=== PATIENT | female | born 1955 | race Caucasian/White ===

== ENCOUNTER → 2018-02-11 18:34 | Outpatient (CLI) | payer MEDICAID | END | disposition home or self-care (01) | LOC: D.MAMMO 11:00 | DX: Z12.31 Encounter for screening mammogram for malignant neoplasm of breast (principal) ==

== ENCOUNTER → 2018-03-18 11:54 | Outpatient (CLI) | payer MEDICARE ==
[~2018-03-18 11:54] MED LIST: ADVIL200 MG PO; CALCIUM 600 +1 EAC3 PO; CENTRUM SILVER1 EAC3 PO; ELIQUIS2.5 MG PO; ICAPS AREDS PO; KEFLEX500 MG PO; OXYCODONE HCL5 M1 PO; VISTARIL50 MG PO
[2018-04-07 12:05] VITALS: BMI 32.5
== END | disposition home or self-care (01) ==
LOC: D.LABREF 11:54
DX: M17.11 Unilateral primary osteoarthritis, right knee (principal); Z11.8 Encounter for screening for other infectious and parasitic diseases

== ENCOUNTER 2018-03-31 10:00 | Inpatient (IN) | payer MEDICARE, OTHER ==
[~2018-03-31] VITALS: Ht 154.9 cm; Wt 78.0 kg
--- NOTE | ~2018-03-31 | OP ---
PATIENT NAME: BLADIMIR PARK MEDICAL RECORD: [id number] :51 LOCATION:[id number] ADMISSION DATE:04/06/18 SURGEON: LES BALDWIN DO DATE OF OPERATION: 04/06/2018 PROCEDURE PERFORMED: Right total knee arthroplasty. PREOPERATIVE DIAGNOSIS: Right knee end-stage osteoarthritis. POSTOPERATIVE DIAGNOSIS: Right knee end-stage osteoarthritis. INDICATIONS: Ms. Park is a 63-year-old female who has been seen in my office for some time. We have been trying all manner of nonoperative management for knee osteoarthritis. She has been getting injections and tried home physical therapy to no avail. She is tired of affecting her activities of daily living, mostly her activity of golf, and wanted something done surgically. I informed of risks and benefits of total knee arthroplasty including infection, bleeding, damage to nerves and vessels, need for further surgery, failure of hardware. She was okay with those risks and consented to the procedure as well as the risk of blood clots. SURGEON: Les Baldwin DO DESCRIPTION OF PROCEDURE: The patient was taken to the operative suite after getting a block by anesthesia, laid in supine position, given 2 grams of Ancef and 80 units of gentamicin through IV for antibiotic. Right lower extremity was prepped and draped in sterile fashion. Time-out was performed and everyone was in agreement with correct side, site, and patient. Incision was then marked out over the midline of the knee and then covered with Ioban. Then, the incision was made with a #10 blade scalpel down to the capsule. Any bleeders were coagulated with Aquamantys throughout this procedure. The capsule was cleared off and a fresh #10 blade scalpel was used to do the medial parapatellar approach to the capsulotomy. The patella was everted and milled down to fit the patellar prosthesis. Then, the knee was flexed up and intramedullary guide was placed in the femur. The distal femur was cut and then the proximal tibia was cut. The knee was then brought to extension and then the menisci were removed and a loose body was removed at that time. The extension block was put in and fit very well. Then, the knee was flexed up and the femur was measured to be 57.5. This was drilled and the cutting block was placed and 4-in-1 cut was made with the block. Then, the trial size was put into place and tibial tray was floated in, ranged, and marked for rotation. Then, this was removed and the patella was drilled for the implant as well as the lug holes on the femur. The tibia was then exposed and prepared and sized to be 67. This was punched and drilled, and the cement was mixed. The knee was thoroughly irrigated, and at that point, any loose bodies were taken out. Cement was placed into the tibia and then implant and impacted into place twice, having the excess cement removed with Prentiss. The femur was then pressed. The femur was then put in and a 10 poly was put in between them and brought into extension. The patella was put in and the patellar squeezer was put on, cemented into place, and held with a squeezer. Excess cement was removed. Knee was then irrigated very thoroughly and any loose bodies were taken out with any excess cement as well. Once the cement had dried, we trialed a 10 poly and then a 12 poly. The 12 poly seemed to fit better and this was placed and the locking mechanism was put into place. Mixture of tobramycin and vancomycin was then placed into the knee capsule and Surgicel beads. The capsule was closed with #2 Ethibond and ran Stratafix over OPERATIVE REPORT [id number] BLADIMIR PARK that in a [id number] fashion with Ethibond. The capsule was then irrigated and more antibiotic was put in that as powder as well as Surgicel. The skin was closed with 2-0 Vicryl in inverted interrupted fashion and a ZipLine was placed on the skin. Adaptic, 4 x 4's, ABD, Webril, and Kevin wrap were then placed on the knee and a CARLIN hose stocking up to the knee. The patient was then awakened and taken to recovery in stable condition. BLOOD LOSS: Approximately 150 mL. COMPLICATIONS: None. TRANSINT:[id number] Voice Confirmation ID: [id number] DOCUMENT ID: [id number] LES BALDWIN DO at 1847 CC: [id number] DICTATION DATE: 04/06/18 1341 TERRITORY SALES PROFESSIONAL: 04/06/18 1508 [facility] [place] [id number] [place] [address]
--- NOTE | ~2018-03-31 | MORECARE ---
CASE MANAGEMENT DISCHARGE SUMMARY PATIENT: BLADIMIR PARK UNIT: [id number] ADM DATE: 04/06/18 AGE: 63 : 51 SEX: F ROOM/BED: D.2211 AUTHOR: GIUSEPPE CRUZ PHYSICIAN: REFERRING PHYSICIAN: ZIA BALDWIN DO DATE OF SERVICE: 04/09/18 Discharge Plan Patient Name: BLADIMIR PARK Facility: [facility]:[place] : 1955 Planned Disposition: Home Anticipated Discharge Date: Discharge Date: 04/08/2018 Expected LOS: 0 Initial Reviewer: [email or web address] Initial Review Date: 04/06/2018 Generated: 04/09/18 12:19 pm Comments DCP- Discharge Planning Updated by [email or web address]: María Ramos on 04/08/18 12:[address] Patient Name: BLADIMIR PARK Encounter No: [id number] : 1955 Primary Insurance: MEDICARE A & B Anticipated DC Date: Planned Disposition: Home External Planned Provider: : DCP follow-up note: Patient and family in agreement with discharge plan. No changes to plan. Case management will follow and assist as needed. María Ramos DCP- Discharge Planning Updated by [email or web address]: María Ramos on 04/07/18 1:[address] Patient Name: BLADIMIR PARK Admission Status: Urgent Accout number: [id number] Admission Date: 04-06-2018 : 1955 Admission Diagnosis: Attending: ZIA BALDWIN Current LOS: 1 Anticipated DC Date: Planned Disposition: Home Primary Insurance: MEDICARE A & B Discharge Planning Comments: CM met with patient to assess discharge planning needs. Patient lives independently at home with her and plans to return there at [place]. She does not have any steps to enter her home. DME has already been delivered to her home. She has a CPM, ice machine, BSC and walker. Patient would like to use [facility] in [place]. I have set the patient's appointment up for ThursdayApr 12 at 3:15. I spoke with Thea. CM will continue to follow and assist with DC planning Wedding Consultant: María Ramos DCPIA - Discharge Planning Initial Assessment Updated by [email or web address]: María Ramos on 04/07/18 2:29 pm * Is the patient Alert and Oriented? Yes * How many steps to enter\exit or inside your home? * PCP GIANNI * Pharmacy [facility] * Preadmission Environment Home with Family * ADLs Independent * Equipment None * List name and contact numbers for known caregivers / representatives who currently or will assist patient after discharge: JOSIAH (SPOUSE ) [phone] * Verbal permission to speak to the caregivers and representatives has been obtained from the patient. Yes * Community resources currently utilized None * Additional services required to return to the preadmission environment? Yes * Can the patient safely return to the preadmission environment? Yes * Has this patient been hospitalized within the prior 30 days at any hospital? No Last DP export: 04/08/18 12:49 p Patient Name: BLADIMIR PARK Page [id number] at 1119 All edits/amendments must be made on the electronic document DICTATION DATE: 04/09/181117 MODEL MAKER SCALE: ALFONSO 04/09/181117 RPT#: [id number] DC DATE:04/08/18 STATUS: DIS IN [facility] [address] [place] [address] END OF REPORT
--- NOTE | ~2018-03-31 | MORECARE ---
CASE MANAGEMENT DISCHARGE SUMMARY PATIENT: BLADIMIR PARK UNIT: [id number] ADM DATE: 04/06/18 AGE: 63 : 51 SEX: F ROOM/BED: D.2211 AUTHOR: GIUSEPPE CRUZ PHYSICIAN: REFERRING PHYSICIAN: ZIA BALDWIN DO DATE OF SERVICE: 04/08/18 Discharge Plan Patient Name: BLADIMIR PARK Facility: [facility]:[place] : 1955 Planned Disposition: Home Anticipated Discharge Date: Discharge Date: Expected LOS: Initial Reviewer: [email or web address] Initial Review Date: 04/06/2018 Generated: 04/08/18 2:49 pm Comments DCP- Discharge Planning Updated by [email or web address]: María Ramos on 04/08/18 12:[address] Patient Name: BLADIMIR PARK Encounter No: [id number] : 1955 Primary Insurance: MEDICARE A & B Anticipated DC Date: Planned Disposition: Home External Planned Provider: : DCP follow-up note: Patient and family in agreement with discharge plan. No changes to plan. Case management will follow and assist as needed. María Ramos DCP- Discharge Planning Updated by [email or web address]: María Ramos on 04/07/18 1:[address] Patient Name: BLADIMIR PARK Admission Status: Urgent Accout number: [id number] Admission Date: 04-06-2018 : 1955 Admission Diagnosis: Attending: ZIA BALDWIN Current LOS: 1 Anticipated DC Date: Planned Disposition: Home Primary Insurance: MEDICARE A & B Discharge Planning Comments: CM met with patient to assess discharge planning needs. Patient lives independently at home with her and plans to return there at [place]. She does not have any steps to enter her home. DME has already been delivered to her home. She has a CPM, ice machine, BSC and walker. Patient would like to use [facility] [place]. I have set the patient's appointment up for ThursdayApr 12 at 3:15. I spoke with Thea. CM will continue to follow and assist with DC planning Oyster Preparer: María Ramos DCPIA - Discharge Planning Initial Assessment Updated by [email or web address]: María Ramos on 04/07/18 2:29 pm * Is the patient Alert and Oriented? Yes * How many steps to enter\exit or inside your home? * PCP GIANNI * Pharmacy [facility] * Preadmission Environment Home with Family * ADLs Independent * Equipment None * List name and contact numbers for known caregivers / representatives who currently or will assist patient after discharge: JOSIAH (SPOUSE ) [phone] * Verbal permission to speak to the caregivers and representatives has been obtained from the patient. Yes * Community resources currently utilized None * Additional services required to return to the preadmission environment? Yes * Can the patient safely return to the preadmission environment? Yes * Has this patient been hospitalized within the prior 30 days at any hospital? No Last DP export: 04/07/18 1:33 Patient Name: BLADIMIR PARK Page [phone] at 1349 All edits/amendments must be made on the electronic document DICTATION DATE: 04/08/18 1349 MACHINE STRIPER: ALFONSO 04/08/18 1349 RPT#: [id number] DC DATE: STATUS: ADM IN [facility] [address] [place] [address] END OF REPORT
--- NOTE | ~2018-03-31 | MORECARE ---
CASE MANAGEMENT DISCHARGE SUMMARY PATIENT: BLADIMIR PARK UNIT: [id number] ADM DATE: 04/06/18 AGE: 63 : 51 SEX: F ROOM/BED: D.2211 AUTHOR: NANCYDOC PHYSICIAN: REFERRING PHYSICIAN: ZAI BALDWIN DO DATE OF SERVICE: 04/07/18 Discharge Plan Patient Name: BLADIMIR PARK Facility: [facility]:[place] : 1955 Planned Disposition: Home Anticipated Discharge Date: Discharge Date: Expected LOS: Initial Reviewer: [email or web address] Initial Review Date: 04/06/2018 Generated: 04/07/18 3:33 pm Comments DCP- Discharge Planning Updated by [email or web address]: María Ramos on 04/07/18 1:[address] Patient Name: BLADIMIR PARK Admission Status: Urgent Accout number: [id number] Admission Date: 04-06-2018 : 1955 Admission Diagnosis: Attending: ZIA BALDWIN Current LOS: 1 Anticipated DC Date: Planned Disposition: Home Primary Insurance: MEDICARE A & B Discharge Planning Comments: CM met with patient to assess discharge planning needs. Patient lives independently at home with her and plans to return there at [place]. She does not have any steps to enter her home. DME has already been delivered to her home. She has a CPM, ice machine, BSC and walker. Patient would like to use [facility] [place]. I have set the patient's appointment up for ThursdayApr 12 at 3:15. I spoke with Thea. CM will continue to follow and assist with DC planning Funeral Car Chauffeur: María Ramos DCPIA - Discharge Planning Initial Assessment Updated by [email or web address]: María Ramos on 04/07/18 2:29 pm * Is the patient Alert and Oriented? Yes * How many steps to enter\exit or inside your home? * PCP JAXONIG * Pharmacy [facility] * Preadmission Environment Home with Family * ADLs Independent * Equipment None * List name and contact numbers for known caregivers / representatives who currently or will assist patient after discharge: JOSIAH (SPOUSE ) [phone] * Verbal permission to speak to the caregivers and representatives has been obtained from the patient. Yes * Community resources currently utilized None * Additional services required to return to the preadmission environment? Yes * Can the patient safely return to the preadmission environment? Yes * Has this patient been hospitalized within the prior 30 days at any hospital? No Patient Name: BLADIMIR PARK Page 55723 at 1433 All edits/amendments must be made on the electronic document DICTATION DATE: 04/07/181431 PATIENT INTAKE COORDINATOR: ALFONSO 04/07/181431 RPT#: [id number] DC DATE: STATUS: ADM IN [facility] [address] [place] [address] END OF REPORT
[~2018-03-31 10:00] MED LIST changes: -ELIQUIS2.5 MG PO; -KEFLEX500 MG PO; -OXYCODONE HCL5 M1 PO; -VISTARIL50 MG PO
[2018-03-31 11:58] LABS: BASOPHILS 0.6 % (0-2); EOSINOPHILS 0.4 % (0-7); HEMATOCRIT 42.5 % (36.0-48.0); HEMOGLOBIN 14.2 g/dL (12-16); IMMATURE GRANULOCYTES 0.4 % (0-5); MCH 29.8 pg (26.0-34.0); MCHC 33.4 g/dL (31.0-37.0); MCV 89.1 fL (80.0-100.0); MEAN PLATELET VOLUME 10.9 fL (7.4-10.4); MONOCYTES 5.4 % (2-11); NEUTROPHILS 74.2 % (40-80); PLATELET COUNT 290 10x3/uL (130-400); RBC 4.77 10x6/uL (4.00-5.40); RDW 13.5 % (11.5-14.5); WBC 6.9 10x3/uL (4.8-10.8)
[2018-03-31 12:16] LABS: CARBON DIOXIDE 27.9 mmol/L (21.0-32.0); CREATININE - SERUM 0.9 mg/dL (0.6-1.3); POTASSIUM - SERUM 3.9 mmol/L (3.5-5.1)
[2018-03-31 12:20] LABS: INR 1.2 (0.85-1.17); PROTIME 14.8 SECONDS (11.6-15.0)
[2018-03-31 12:27] LABS: APPEARANCE HAZY (CLEAR); BACTERIA FEW /hpf (NONE SEEN); BILIRUBIN NEGATIVE (NEGATIVE); COLOR YELLOW (YELLOW); EPITHELIAL CELLS 0-5 /hpf (0-5); GLUCOSE NEGATIVE (NEGATIVE); KETONE NEGATIVE (NEGATIVE); MUCUS >1+ /lpf (NONE SEEN); NITRITE NEGATIVE (NEGATIVE); PROTEIN NEGATIVE (NEGATIVE); RED CELLS - URINE 0-5 /hpf (0-5); SPECIFIC GRAVITY 1.015 (1.005-1.020); UROBILINOGEN NORMAL (NORMAL); WHITE CELLS - URINE 0-5 /hpf (0-5)
[2018-04-06 09:28] VITALS: BMI 32.7
[2018-04-06 14:52] VITALS: BP 117/72; BMI 32.5
[2018-04-06 15:45] VITALS: BP 116/60
[2018-04-06 20:49] VITALS: BP 102/54
[2018-04-07 00:35] VITALS: BP 112/60
[2018-04-07 04:42] VITALS: BP 124/64
[2018-04-07 05:57] LABS: BASOPHILS 0.2 % (0-2); EOSINOPHILS 0.3 % (0-7); HEMATOCRIT 34.4 % (36.0-48.0); HEMOGLOBIN 11.4 g/dL (12-16); IMMATURE GRANULOCYTES 0.4 % (0-5); LYMPHOCYTES 13.4 % (15-50); MCH 29.4 pg (26.0-34.0); MCHC 33.1 g/dL (31.0-37.0); MCV 88.7 fL (80.0-100.0); MONOCYTES 8.1 % (2-11); NEUTROPHILS 77.6 % (40-80); PLATELET COUNT 242 10x3/uL (130-400); RBC 3.88 10x6/uL (4.00-5.40); RDW 13.4 % (11.5-14.5)
[2018-04-07 06:14] LABS: ALBUMIN 2.9 g/dL (3.4-5.0); ALKALINE PHOSPHATASE 74 U/L (46-116); ALT (SGPT) 26 U/L (10-68); BILIRUBIN - TOTAL 0.49 mg/dL (0.2-1.3); CALC OSMOLALITY 274 mosm/kg (275-300); CALCIUM 8.3 mg/dL (8.5-10.1); CARBON DIOXIDE 27.3 mmol/L (21.0-32.0); CHLORIDE - SERUM 104 mmol/L (98-107); CREATININE - SERUM 0.8 mg/dL (0.6-1.3); GLUCOSE 107 mg/dL (74-106); POTASSIUM - SERUM 3.8 mmol/L (3.5-5.1); PROTEIN - SERUM 5.7 g/dL (6.4-8.2); SODIUM 138 mmol/L (136-145); UREA NITROGEN 9 mg/dL (7-18); eGFR NON AFRICAN AMERICAN 76 mL/min (90-120)
[2018-04-07 08:33] VITALS: BP 101/52
[2018-04-07 10:40] LABS: APPEARANCE HAZY (CLEAR); BILIRUBIN NEGATIVE (NEGATIVE); COLOR YELLOW (YELLOW); GLUCOSE NEGATIVE (NEGATIVE); KETONE NEGATIVE (NEGATIVE); NITRITE NEGATIVE (NEGATIVE); PROTEIN NEGATIVE (NEGATIVE); SPECIFIC GRAVITY 1.015 (1.005-1.020); UROBILINOGEN NORMAL (NORMAL)
[2018-04-07 12:05] VITALS: Ht 154.9 cm; Wt 78.0 kg
[2018-04-07 12:45] VITALS: BP 108/53
[2018-04-07 22:16] VITALS: BP 145/55
[2018-04-08 04:58] VITALS: BP 159/65
[2018-04-08 06:01] LABS: BASOPHILS 0.1 % (0-2); EOSINOPHILS 0.8 % (0-7); HEMATOCRIT 34.4 % (36.0-48.0); HEMOGLOBIN 11.1 g/dL (12-16); IMMATURE GRANULOCYTES 0.4 % (0-5); LYMPHOCYTES 10.4 % (15-50); MCH 28.7 pg (26.0-34.0); MCHC 32.3 g/dL (31.0-37.0); MCV 88.9 fL (80.0-100.0); MONOCYTES 10.2 % (2-11); NEUTROPHILS 78.1 % (40-80); PLATELET COUNT 210 10x3/uL (130-400); RBC 3.87 10x6/uL (4.00-5.40); RDW 13.6 % (11.5-14.5); WBC 8.4 10x3/uL (4.8-10.8)
[2018-04-08 06:39] LABS: ALKALINE PHOSPHATASE 78 U/L (46-116); ALT (SGPT) 21 U/L (10-68); BILIRUBIN - TOTAL 0.65 mg/dL (0.2-1.3); CALC OSMOLALITY 275 mosm/kg (275-300); CALCIUM 8.3 mg/dL (8.5-10.1); CHLORIDE - SERUM 102 mmol/L (98-107); CREATININE - SERUM 0.7 mg/dL (0.6-1.3); GLUCOSE 109 mg/dL (74-106); POTASSIUM - SERUM 3.4 mmol/L (3.5-5.1); SODIUM 138 mmol/L (136-145); UREA NITROGEN 10 mg/dL (7-18); eGFR NON AFRICAN AMERICAN 89 mL/min (90-120)
[2018-04-08 11:00] VITALS: BP 131/67
[2018-04-08] MEDS ORDERED: ELIQUIS2.5 MG PO (13:16)
[2018-04-08] MEDS ORDERED: KEFLEX500 MG PO (13:18)
[2018-04-08] MEDS ORDERED: VISTARIL50 MG PO (13:18)
[2018-04-08] MEDS ORDERED: OXYCODONE HCL5 M1 PO (13:18)
[2018-04-08 16:33] VITALS: BP 137/69
== END 2018-04-08 16:54 | disposition home or self-care (01) | DRG 470 ==
LOC: D.MS 04-06 08:10 → D.SDCHOLD 04-06 08:10 → D.MS 04-06 14:24
PROVIDERS: Family Medicine; Orthopaedic Surgery
PROC: 0SRC0J9 Replacement of Right Knee Joint with Synthetic Substitute, Cemented, Open Approach (ICD-10-PCS; principal; 2018-04-06 11:00)
DX: M17.11 Unilateral primary osteoarthritis, right knee (principal); G89.29 Other chronic pain

== ENCOUNTER 2019-06-22 09:00 | Outpatient (CLI) | payer MEDICARE, OTHER ==
[2018-04-07 12:05] VITALS: BMI 32.5
[~2019-06-22 09:00] MED LIST changes: +ELIQUIS2.5 MG PO; +KEFLEX500 MG PO; +OXYCODONE HCL5 M1 PO; +VISTARIL50 MG PO
== END 2019-06-22 10:00 | disposition home or self-care (01) ==
LOC: D.MAMMO 09:00
PROVIDERS: ATTEND Family Medicine
DX: Z12.31 Encounter for screening mammogram for malignant neoplasm of breast (principal)